=== PATIENT | female | born 1950 | race Caucasian/White ===

== ENCOUNTER 2021-09-25 17:13 | Inpatient (IN) | payer MEDICARE, OTHER ==
[~2021-09-25] VITALS: Ht 162.6 cm; Wt 167.5 kg
--- NOTE | 2021-09-25 17:15 | NUR ---
Patient BIB rescue, alert and oriented x4 with complaints of SOB and cough, bilateral lower ext edema noted. Denies nausea/vomiting, chest pain. History of COPD.
--- NOTE | 2021-09-25 17:16 | NUR ---
MD at bedside, medical screening exam in process.
[2021-09-25] MEDS ORDERED: ALBUTEROL SULFATE 2.5 MG/3 ML NEBU ONE ×2 (17:24→17:25)
[2021-09-25] MEDS ORDERED: IPRATROPIUM BROMIDE 0.5 MG/2.5 ML NEBU ONE (17:24)
[2021-09-25] MEDS ORDERED: IPRATROPIUM BROMIDE 0.5 MG/2.5 ML NEBU NEB ONE (17:30)
[2021-09-25] MEDS ORDERED: ALBUTEROL SULFATE 2.5 MG/3 ML NEBU NEB ONE (17:30)
--- NOTE | 2021-09-25 17:40 | NUR ---
Covid specimen sent to lab.
[2021-09-25 17:53] LABS: HEMATOCRIT 35.4 % (31.2-41.9); MEAN CORPUSCULAR HEMOGLOBIN 27.6 uug (24.7-32.8); MEAN CORPUSCULAR VOLUME 84.4 fL (75.5-95.3); PLATELET COUNT (AUTO) 187 K/uL (179-408)
[2021-09-25 17:56] LABS: CARBON DIOXIDE 30 mmol/L (21-32); CHLORIDE 103 mmol/L (98-107); CREATININE 1.3 mg/dL (0.6-1.3); GLUCOSE 188 mg/dL (74-106); POTASSIUM 4.4 mmol/L (3.5-5.1); UREA NITROGEN, BLOOD 28 mg/dL (7-18)
[2021-09-25 18:09] LABS: ALANINE AMINOTRANSFERASE 37 U/L (14-59); ALKALINE PHOSPHATASE 172 U/L (50-136); ASPARTATE AMINOTRANSFERASE 23 U/L (15-37); BILIRUBIN,TOTAL 0.5 mg/dL (0.2-1.0)
[2021-09-25] MEDS ORDERED: DOCU-141 PO (18:15)
[2021-09-25] MEDS ORDERED: BLOO-668 IN (18:15)
[2021-09-25] MEDS ORDERED: HYDR28.469 TP (18:15)
[2021-09-25] MEDS ORDERED: FURO-151 PO (18:15)
[2021-09-25] MEDS ORDERED: QUET50TA PO (18:15)
[2021-09-25] MEDS ORDERED: CHOL500050 PO (18:15)
[2021-09-25] MEDS ORDERED: LORA10TA7 PO (18:15)
[2021-09-25] MEDS ORDERED: ASPI81TA31 PO (18:15)
[2021-09-25] MEDS ORDERED: INSU200I SQ ×3 (18:15)
[2021-09-25] MEDS ORDERED: LOPE2CAP40 PO (18:15)
[2021-09-25] MEDS ORDERED: LEVO175T7 PO (18:15)
[2021-09-25] MEDS ORDERED: APIX5TAB PO (18:15)
[2021-09-25] MEDS ORDERED: CARB15DR3 OP (18:15)
[2021-09-25] MEDS ORDERED: PANT40TA2 PO (18:15)
[2021-09-25] MEDS ORDERED: ATOR40TA PO (18:15)
[2021-09-25] MEDS ORDERED: NYST15PO3 TP (18:15)
[2021-09-25] MEDS ORDERED: BUDE10.2 INH (18:15)
[2021-09-25] MEDS ORDERED: ASCO500C18 PO (18:15)
[2021-09-25] MEDS ORDERED: GLIP10TA11 PO (18:15)
[2021-09-25] MEDS ORDERED: HYDR10SY12 PO (18:15)
[2021-09-25] MEDS ORDERED: GABA300C PO (18:15)
[2021-09-25] MEDS ORDERED: DIPH25TA23 PO (18:15)
[2021-09-25] MEDS ORDERED: LISI40TA13 PO (18:15)
[2021-09-25] MEDS ORDERED: CARV25TA PO (18:15)
[2021-09-25] MEDS ORDERED: ALLO100T56 PO (18:15)
[2021-09-25] MEDS ORDERED: BUPR300T52 PO (18:15)
[2021-09-25] MEDS ORDERED: ALBU6.7H9 INH (18:15)
[2021-09-25] MEDS ORDERED: ACET-73 PO (18:15)
[2021-09-25] MEDS ORDERED: ESCI20TA PO (18:15)
[2021-09-25] MEDS ORDERED: TRAM50TA2 PO (18:15)
[2021-09-25] MEDS ORDERED: INSU100I26 SQ ×2 (18:15)
[2021-09-25] MEDS ORDERED: CELE200C PO (18:15)
[2021-09-25] MEDS ORDERED: AMIO200T5 PO (18:15)
[2021-09-25] MEDS ORDERED: FUROSEMIDE 40 MG/4 ML VIAL IV ONE (18:30)
[2021-09-25] MEDS ORDERED: FUROSEMIDE 40 MG/4 ML VIAL ONE (18:48)
--- NOTE | 2021-09-25 19:15 | NUR ---
Dr. Valdez at bedside speaking with the pt.
--- NOTE | 2021-09-25 19:25 | NUR ---
called Sunil Hernandez at [facility] at [phone] spoke with the Eunice the charge nurse, she is speaking with Dr. Valdez.
--- NOTE | 2021-09-25 20:31 | NUR ---
ultrasound at bedside.
--- NOTE | 2021-09-25 21:04 | NUR ---
call to Emma at [facility] [phone] they state a doctor will call in about 15 to 20 minutes to speak to the ER MD here.
--- NOTE | 2021-09-25 21:37 | NUR ---
pt aware that per her insurance she will be transferred to [facility]. She states she is comfortable in the [place] denies sob saturation is 96 on 2 liters nc.
--- NOTE | 2021-09-25 23:01 | NUR ---
per ER clerk Mendoza [facility] needs more paperwork if the pt is stable. This was faxed to them we are still waiting to hear back from them. This was relayed to the pt, the patient says "ok" she would like to go soon she says to the other hospital that she will be admitted to.
--- NOTE | 2021-09-25 23:27 | NUR ---
provided orange juice per pt request.
[2021-09-26] MEDS ORDERED: ACETAMINOPHEN ES 500 MG TABLET ONE ×2 (00:09→00:13)
[2021-09-26] MEDS ORDERED: ACETAMINOPHEN ES 500 MG TABLET PO ONE (00:15)
--- NOTE | 2021-09-26 00:23 | NUR ---
called Rachel at [facility] regarding transport to [facility]. They state they are still trying to locate an ambulance secondary to the need of a Bariatric ambulance as pt weighs 385 lbs.
--- NOTE | 2021-09-26 01:37 | NUR ---
per Bobbi Wellington from [facility] gave authorization for observation.
--- NOTE | 2021-09-26 02:04 | NUR ---
pt transferred to a hospital bed, with the assist three nurses and RT. pt is being placed on cpap by RT. Call to [facility] panel doctor for admission.
[2021-09-26] MEDS ORDERED: NYSTATIN POWDER 15 GM BOTTLE TP PRN (02:15)
[2021-09-26] MEDS ORDERED: ALBUTEROL SULFATE 8 GM HFA.AER.AD INH PRN (02:15)
--- NOTE | 2021-09-26 02:17 | NUR ---
cpap settings, 13. 28 percent fio2 for jacklyn.
[2021-09-26] MEDS ORDERED: DEXTROSE 50% 50 ML DISP.SYRIN IV PRN (02:30)
--- NOTE | 2021-09-26 03:05 | NUR ---
pt c/o pain, call to Dr. Rendon.
--- NOTE | 2021-09-26 03:09 | NUR ---
Dr. Michael called back gave one time order for Neurontin 300mg po.
[2021-09-26] MEDS ORDERED: GABAPENTIN 300 MG CAPSULE ONE (03:12)
[2021-09-26] MEDS ORDERED: hydrALAZINE HCL 20 MG/1 ML VIAL IV PRN (03:15)
[2021-09-26] MEDS ORDERED: GABAPENTIN 300 MG CAPSULE PO ONE (03:15)
[2021-09-26] MEDS ORDERED: ONDANSETRON 4 MG/2 ML VIAL IV PRN (03:15)
--- NOTE | 2021-09-26 04:06 | NUR ---
report given to Jessica RN, pt to go to room 314.
--- NOTE | 2021-09-26 04:56 | NUR ---
pt transported to room 314 via bed with all belongings. MITUL Lopez at bedside to receive the pt.
[2021-09-26 05:00] VITALS: BP 136/58
--- NOTE | 2021-09-26 05:00 | NUR ---
patient admitted to telemetry. AAO x4, is a good historian. Patient lives in [place], uses motorized wheel chair. On CPAP at this time. still noted with SOB at rest with occasional dry cough. Admitted for CHF. 2 Pitting edema to BLE. Patient is obese. c/O pain to lower back and knees. Skin assessment completed and pictures attached to chart. HOB elevated, aspiration precautions followed. Safety measures initiated. Call light within reach.
--- NOTE | 2021-09-26 05:09 | NUR ---
PATIENT PLACED ON 2 L NASAL CANNULA FOR TRANSPORT. PER MD ORDER, RETURNED TO CPAP 13, 28% FiO2. LARGE MASK, MEPILEX IN PLACE FOR SKIN INTEGRITY. ALARMS CHECKED AND ARE ON/AUDIBLE. MACHINE CONNECTED TO RED OUTLET. NO COMPLICATIONS. CPAP TOLERATED WELL. WILL CONTINUE TO MONITOR.
[2021-09-26] MEDS ORDERED: ALBUTEROL SULFATE 2.5 MG/3 ML NEBU NEB PRN (05:45)
[2021-09-26] MEDS: MORPHINE SULFATE 2 MG/1 ML DISP.SYRIN IV PRN ×3 (06:10→20:08)
[2021-09-26] MEDS: LEVOTHYROXINE SODIUM 175 MCG TABLET PO SCH (06:11)
[2021-09-26] MEDS: BLOOD SUGAR DIAGNOSTIC 1 EACH STRIP VI SCH ×4 (06:12→21:17)
[2021-09-26 08:00] VITALS: BP 112/36
[2021-09-26] MEDS ORDERED: IPRATROPIUM BROMIDE 0.5 MG/2.5 ML NEBU NEB PRN (08:30)
[2021-09-26] MEDS ORDERED: AMIODARONE HCL 200 MG TABLET PO SCH (09:00)
[2021-09-26] MEDS ORDERED: Medication Not On Formulary EA (Escitalopram Oxalate (Lexapro) 1 TAB) PO SCH (09:00)
[2021-09-26] MEDS ORDERED: POLYVINYL ALCOHOL OPHT DROPS 15 ML BOTTLE OP SCH (09:00)
[2021-09-26] MEDS: CARVEDILOL 25 MG TABLET PO SCH ×2 (10:08→18:45)
[2021-09-26] MEDS: ALLOPURINOL 100 MG TABLET PO SCH (10:08)
[2021-09-26] MEDS: LISINOPRIL 20 MG TABLET PO SCH (10:09)
[2021-09-26] MEDS: LORATADINE 10 MG TABLET PO SCH (10:09)
[2021-09-26] MEDS: ASPIRIN 81 MG TAB.CHEW PO SCH (10:09)
[2021-09-26] MEDS: ASCORBIC ACID 500 MG TABLET PO SCH (10:09)
[2021-09-26] MEDS: CHOLECALCIFEROL 1,000 UNIT TABLET PO SCH (10:10)
[2021-09-26] MEDS: APIXABAN 5 MG TABLET PO SCH ×2 (10:11→21:15)
[2021-09-26] MEDS: FUROSEMIDE 40 MG/4 ML VIAL IV SCH ×2 (10:11→17:49)
[2021-09-26] MEDS: AMIODARONE HCL 200 MG TABLET PO SCH (10:13)
[2021-09-26] MEDS: PANTOPRAZOLE SODIUM 40 MG TABLET.DR PO SCH (10:21)
[2021-09-26] MEDS: ESCITALOPRAM OXALATE 10 MG TABLET PO SCH (10:21)
[2021-09-26] MEDS: buPROPion XL 150 MG TAB.SR.24H PO SCH (10:21)
[2021-09-26] MEDS: ALBUTEROL SULFATE 2.5 MG/3 ML NEBU NEB SCH ×3 (11:52→21:43)
[2021-09-26] MEDS: IPRATROPIUM BROMIDE 0.5 MG/2.5 ML NEBU NEB SCH ×3 (11:52→21:43)
[2021-09-26 12:00] VITALS: BP 124/45
--- NOTE | 2021-09-26 12:07 | NUR ---
WOUND CARE C ONSULT: PT RECEIVING RESPIRATORY TREATMENT AT THIS TIME. PRESENTS WITH REDNESS TO RT SIDE OF ABDOMEN, PRESENT ON ADMISSION. DEFER TO PMD. RECOMMENDATIONS MADE FOR SKIN PROTECTION. DISCUSSED WITH NURSING STAFF. BARIATRIC BED ORDERED BY NURSING STAFF. WILL SEE PRArthur CANCINO IN AGREEMENT WITH PLAN OF CARE.
[2021-09-26] MEDS: INSULIN REGULAR, HUMAN 300 UNIT/3 ML VIAL SQ PRN ×2 (12:33→18:05)
[2021-09-26] MEDS: POLYVINYL ALCOHOL OPHT DROPS 15 ML BOTTLE EACHEYE SCH ×3 (12:35→21:16)
[2021-09-26 16:00] VITALS: BP 138/48
[2021-09-26] MEDS: NYSTATIN POWDER 15 GM BOTTLE TP SCH (17:50)
[2021-09-26 20:56] VITALS: BP 116/49
[2021-09-26] MEDS: ATORVASTATIN 40 MG TABLET PO SCH (21:08)
[2021-09-26] MEDS: QUETIAPINE FUMARATE 25 MG TABLET PO SCH (21:09)
[2021-09-26] MEDS: GABAPENTIN 300 MG CAPSULE PO SCH (21:09)
[2021-09-26] MEDS: INSULIN GLARGINE,HUM 300 UNITS/3 ML CARTRIDGE SQ SCH (21:14)
[2021-09-26] MEDS: INSULIN REGULAR, HUMAN 300 UNITS/3 ML VIAL SQ PRN (21:19)
--- NOTE | 2021-09-27 00:13 | NUR ---
PATIENT PLACED ON CPAP MACHINE WITH FULL LARGE MASK, @ 22:00, CPAP 13, FIO2 @ 28%, PT FALLS ASLEEP EARLY, VERY COOPERATIVE, ,MONITOR Q2 HOURS, DOING WELL, WITH NO RESP. DISTRESS.Florencio KAUFFMAN RCP Addendum: 09/27/21 at 0015 by JARAD KAUFFMAN RT Amended: Links added.
[2021-09-27 00:21] VITALS: BP 155/59
[2021-09-27 04:35] VITALS: BP 124/59
[2021-09-27 06:10] LABS: HEMATOCRIT 33.2 % (31.2-41.9); MEAN CORPUSCULAR HEMOGLOBIN 27.5 uug (24.7-32.8); MEAN CORPUSCULAR VOLUME 84.9 fL (75.5-95.3); PLATELET COUNT (AUTO) 165 K/uL (179-408)
[2021-09-27] MEDS: LEVOTHYROXINE SODIUM 175 MCG TABLET PO SCH (06:25)
[2021-09-27] MEDS: BLOOD SUGAR DIAGNOSTIC 1 EACH STRIP VI SCH ×4 (06:25→20:42)
[2021-09-27 06:26] LABS: CARBON DIOXIDE 33 mmol/L (21-32); CHLORIDE 101 mmol/L (98-107); CREATININE 1.5 mg/dL (0.6-1.3); GLUCOSE 193 mg/dL (74-106); POTASSIUM 4.2 mmol/L (3.5-5.1); UREA NITROGEN, BLOOD 30 mg/dL (7-18)
[2021-09-27 06:27] LABS: ALANINE AMINOTRANSFERASE 24 U/L (14-59); ALKALINE PHOSPHATASE 140 U/L (50-136); ASPARTATE AMINOTRANSFERASE 15 U/L (15-37); BILIRUBIN,TOTAL 0.9 mg/dL (0.2-1.0); MAGNESIUM 1.3 mg/dL (1.8-2.4); PHOSPHOROUS 4.7 mg/dL (2.5-4.9); TOTAL PROTEIN, SERUM 6.4 g/dL (6.4-8.2)
--- NOTE | 2021-09-27 06:32 | NUR ---
Pt rested well in between care; no acute distress; tolerated CPAP; pt placed on bariatric bed; continue to monitor; continue plan of care; accucheck this AM is 171
[2021-09-27 06:37] LABS: THYROID STIMULATING HORMONE 0.525 mIU/mL (0.358-3.740)
[2021-09-27 06:48] LABS: LYMPHOCYTES % (MANUAL) 27 % (20-40); MONOCYTES % (MANUAL) 16 % (2-10); NEUTROPHILS % (MANUAL) 57 % (42-75)
[2021-09-27] MEDS: ALBUTEROL SULFATE 2.5 MG/3 ML NEBU NEB SCH ×4 (07:17→19:02)
[2021-09-27] MEDS: IPRATROPIUM BROMIDE 0.5 MG/2.5 ML NEBU NEB SCH ×4 (07:17→19:02)
[2021-09-27] MEDS: INSULIN REGULAR, HUMAN 300 UNIT/3 ML VIAL SQ PRN ×3 (07:41→16:39)
--- NOTE | 2021-09-27 07:50 | NUR ---
PATIENT IS RESTED IN BED, NO DISTRESS NOTED. GOT HER MORNING DOSE OF INSULIN 3 UNITS PER SLIDING SCARE. CONTINUE TO MONITOR
[2021-09-27] MEDS: CARVEDILOL 25 MG TABLET PO SCH ×2 (08:00→17:49)
--- NOTE | 2021-09-27 08:00 | NUR ---
HOSPITALIST MADE AWARE OF LOW MAGNESIUM 1.3 AND MADE AN ORDER TO GIVE 2 GMS IV
[2021-09-27] MEDS: ASPIRIN 81 MG TAB.CHEW PO SCH (08:11)
[2021-09-27] MEDS: APIXABAN 5 MG TABLET PO SCH ×2 (08:13→20:37)
[2021-09-27] MEDS: LORATADINE 10 MG TABLET PO SCH (08:14)
[2021-09-27] MEDS: ESCITALOPRAM OXALATE 10 MG TABLET PO SCH (08:14)
[2021-09-27] MEDS: PANTOPRAZOLE SODIUM 40 MG TABLET.DR PO SCH (08:14)
[2021-09-27] MEDS: CHOLECALCIFEROL 1,000 UNIT TABLET PO SCH (08:15)
[2021-09-27] MEDS: ALLOPURINOL 100 MG TABLET PO SCH (08:18)
[2021-09-27] MEDS: buPROPion XL 150 MG TAB.SR.24H PO SCH (08:19)
[2021-09-27] MEDS: ASCORBIC ACID 500 MG TABLET PO SCH (08:19)
[2021-09-27] MEDS: FUROSEMIDE 40 MG/4 ML VIAL IV SCH (08:20)
[2021-09-27] MEDS: AMIODARONE HCL 200 MG TABLET PO SCH (08:21)
[2021-09-27] MEDS: LISINOPRIL 20 MG TABLET PO SCH (08:23)
[2021-09-27] MEDS: NYSTATIN POWDER 15 GM BOTTLE TP SCH ×2 (08:24→17:50)
[2021-09-27] MEDS: POLYVINYL ALCOHOL OPHT DROPS 15 ML BOTTLE EACHEYE SCH ×4 (08:24→20:44)
--- NOTE | 2021-09-27 08:25 | NUR ---
PER HOSPITALIST, HOLD AMIODARONE, COREG AND LISINOPRIL DUE TO LOW BP AND CONTINUE WITH LASIX ORDERED.
[2021-09-27] MEDS: MAGNESIUM SULFATE/D5W 100 ML IV SCH ×2 (09:11→10:30)
[2021-09-27 10:39] LABS: ABG BASE EXCESS 6.3 mmol/L; ABG HCO3 31.4 mmol/L; ABG PCO2 47.8 mmHg (35.0-45.0); ABG PH 7.436 (7.350-7.450); ABG SITE RIGHT RADIAL; ABG TOTAL HEMOGLOBIN 11.6 G/dL (12.0-16.0); COHb 1.2 % (0.5-1.5); MetHb 0.3 % (0.0-1.5); O2Hb 91.7 % (94.0-97.0); VENT MODE Nasal Cannula
[2021-09-27 11:35] VITALS: BP 128/50
--- NOTE | 2021-09-27 13:05 | NUR ---
PATIENT ASKED TO BE PUT ON CPAP BECAUSE SHE SAID HER NOSE WAS STUFFED. PATIENT IS RESTING IN BED, NO DISTRESS NOTED
[2021-09-27] MEDS: ACETAMINOPHEN 325 MG TABLET PO PRN (14:45)
--- NOTE | 2021-09-27 14:51 | NUR ---
PATIENT ASKED FOR TYLENOL FOR HER HEADACHE. PATIENT WAS GIVEN TYLENOL. WILL CONTINUE TO MONITOR.
[2021-09-27 16:45] VITALS: BP 136/54
[2021-09-27] MEDS: FUROSEMIDE 20 MG/2 ML VIAL IV SCH (17:29)
--- NOTE | 2021-09-27 17:30 | NUR ---
patient was not given Coreg due to low BP (96/54) and pulse (57).
[2021-09-27] MEDS: ATORVASTATIN 40 MG TABLET PO SCH (20:36)
[2021-09-27] MEDS: GABAPENTIN 300 MG CAPSULE PO SCH (20:36)
[2021-09-27] MEDS: QUETIAPINE FUMARATE 25 MG TABLET PO SCH (20:37)
[2021-09-27] MEDS: INSULIN GLARGINE,HUM 300 UNITS/3 ML CARTRIDGE SQ SCH (20:41)
[2021-09-27] MEDS: INSULIN REGULAR, HUMAN 300 UNITS/3 ML VIAL SQ PRN (20:43)
[2021-09-27 20:50] VITALS: BP 151/54
[2021-09-28 00:28] VITALS: BP 109/57
[2021-09-28 04:32] VITALS: BP 131/53
[2021-09-28] MEDS: LEVOTHYROXINE SODIUM 175 MCG TABLET PO SCH (05:56)
--- NOTE | 2021-09-28 06:00 | NUR ---
Patient rested well in between care; no acute distress; tolerated her CPAP; needs attended; safety maintained.
[2021-09-28] MEDS: BLOOD SUGAR DIAGNOSTIC 1 EACH STRIP VI SCH ×4 (06:59→21:20)
[2021-09-28] MEDS: IPRATROPIUM BROMIDE 0.5 MG/2.5 ML NEBU NEB SCH ×4 (07:28→19:12)
[2021-09-28] MEDS: ALBUTEROL SULFATE 2.5 MG/3 ML NEBU NEB SCH ×4 (07:28→19:12)
[2021-09-28] MEDS: INSULIN REGULAR, HUMAN 300 UNIT/3 ML VIAL SQ PRN ×4 (07:51→21:18)
[2021-09-28] MEDS: ASPIRIN 81 MG TAB.CHEW PO SCH (08:26)
[2021-09-28] MEDS: ALLOPURINOL 100 MG TABLET PO SCH (08:26)
[2021-09-28] MEDS: AMIODARONE HCL 200 MG TABLET PO SCH (08:26)
[2021-09-28] MEDS: ASCORBIC ACID 500 MG TABLET PO SCH (08:26)
[2021-09-28] MEDS: buPROPion XL 150 MG TAB.SR.24H PO SCH (08:26)
[2021-09-28] MEDS: CARVEDILOL 25 MG TABLET PO SCH ×2 (08:27→17:14)
[2021-09-28] MEDS: POLYVINYL ALCOHOL OPHT DROPS 15 ML BOTTLE EACHEYE SCH ×4 (08:27→21:21)
[2021-09-28] MEDS: APIXABAN 5 MG TABLET PO SCH ×2 (08:36→21:19)
[2021-09-28] MEDS: CHOLECALCIFEROL 1,000 UNIT TABLET PO SCH (08:37)
[2021-09-28] MEDS: FUROSEMIDE 20 MG/2 ML VIAL IV SCH ×2 (08:38→17:01)
[2021-09-28] MEDS: ESCITALOPRAM OXALATE 10 MG TABLET PO SCH (08:38)
[2021-09-28] MEDS: PANTOPRAZOLE SODIUM 40 MG TABLET.DR PO SCH (08:38)
[2021-09-28] MEDS: LISINOPRIL 20 MG TABLET PO SCH (08:38)
[2021-09-28] MEDS: LORATADINE 10 MG TABLET PO SCH (08:38)
[2021-09-28] MEDS: NYSTATIN POWDER 15 GM BOTTLE TP SCH ×2 (08:39→17:01)
[2021-09-28 09:40] LABS: CREATININE 1.3 mg/dL (0.6-1.3); POTASSIUM 4.1 mmol/L (3.5-5.1)
[2021-09-28 12:00] VITALS: BP 152/62
--- NOTE | 2021-09-28 12:00 | NUR ---
NO ACUTE CHANGE FROM MORNING ASSESSMENT, TOLERATING O2 AT 1L NC SATURATING 95% SR ON MONITOR
[2021-09-28 16:09] VITALS: BP 142/42
--- NOTE | 2021-09-28 17:36 | NUR ---
remains sr on monitor, no ss of acute pain or distress, saturating 96-97% on 2l nc
[2021-09-28 20:12] VITALS: BP 131/66
[2021-09-28] MEDS: INSULIN GLARGINE,HUM 300 UNITS/3 ML CARTRIDGE SQ SCH (21:17)
[2021-09-28] MEDS: GABAPENTIN 300 MG CAPSULE PO SCH (21:19)
[2021-09-28] MEDS: ATORVASTATIN 40 MG TABLET PO SCH (21:19)
[2021-09-28] MEDS: QUETIAPINE FUMARATE 25 MG TABLET PO SCH (21:20)
[2021-09-29 00:37] VITALS: BP 113/46
[2021-09-29] MEDS: MORPHINE SULFATE 2 MG/1 ML DISP.SYRIN IV PRN (03:04)
--- NOTE | 2021-09-29 03:49 | NUR ---
Pt pulled out her IV removing her CPAP, and Nasal cannula when off cpap; pt pulling out Tele Leads multiple times; and now pt trying to opull out her hermosillo catheter; referred to [employer] Installer Helper MD Dr Michael and ordered wrist restraints. wrist restraints applies; iv resited; safety maintained; continue to monitor.
[2021-09-29 04:12] VITALS: BP 111/69
[2021-09-29 06:49] LABS: HEMATOCRIT 35.9 % (31.2-41.9); MEAN CORPUSCULAR HEMOGLOBIN 27.7 uug (24.7-32.8); MEAN CORPUSCULAR VOLUME 85.6 fL (75.5-95.3); PLATELET COUNT (AUTO) 182 K/uL (179-408)
[2021-09-29 07:07] LABS: CARBON DIOXIDE 36 mmol/L (21-32); CHLORIDE 98 mmol/L (98-107); CREATININE 1.7 mg/dL (0.6-1.3); GLUCOSE 188 mg/dL (74-106); POTASSIUM 3.8 mmol/L (3.5-5.1); UREA NITROGEN, BLOOD 36 mg/dL (7-18)
[2021-09-29 07:11] LABS: PHOSPHOROUS 4.3 mg/dL (2.5-4.9)
--- NOTE | 2021-09-29 07:31 | NUR ---
RECEIVED PATIENT IN BED ON CPAP ORDERED WITH NO S/S OF SHORTNESS OF BREATH AT THIS TIME SHE IS AWAKE AND SEEMS AWARE WITH DENIS WRIST RESTRAINTS TO PREVENT FROM PULLING OUT TUBES CHECKED AND RELEASED FOR CIRCULATION.MAX ASSIST FOR ADLS REPOSITIONED FOR COMFORTS NOT IN DISTRESS AT THIS TIME.
[2021-09-29] MEDS: IPRATROPIUM BROMIDE 0.5 MG/2.5 ML NEBU NEB SCH ×4 (07:39→19:41)
[2021-09-29] MEDS: ALBUTEROL SULFATE 2.5 MG/3 ML NEBU NEB SCH ×4 (07:40→19:41)
[2021-09-29] MEDS: BLOOD SUGAR DIAGNOSTIC 1 EACH STRIP VI SCH ×4 (07:42→20:16)
[2021-09-29] MEDS: LEVOTHYROXINE SODIUM 175 MCG TABLET PO SCH (07:53)
[2021-09-29] MEDS: INSULIN REGULAR, HUMAN 300 UNIT/3 ML VIAL SQ PRN ×3 (07:54→17:05)
--- NOTE | 2021-09-29 08:25 | NUR ---
REPORTED BY THE MERCERIZER MACHINE OPERATOR PATIENTS RHYTHM IS AFIB AT 105 STATED THAT SHE HAS ALWAYS BEEN SINUS RHYTHM DR MCMANUS NOTIFIED WITH ORDER FOR STAT EKG PATIENT IS QUIET IN BED DENIES DISCOMFORTS HAS O2 AT 1 LITER PER MINUTE WITH NO SHORTNESS OF BREATH AT THIS TIME
[2021-09-29] MEDS: CHOLECALCIFEROL 1,000 UNIT TABLET PO SCH (08:39)
[2021-09-29] MEDS: FUROSEMIDE 20 MG/2 ML VIAL IV SCH (08:39)
[2021-09-29] MEDS: buPROPion XL 150 MG TAB.SR.24H PO SCH (08:40)
[2021-09-29] MEDS: ASCORBIC ACID 500 MG TABLET PO SCH (08:40)
[2021-09-29] MEDS: ASPIRIN 81 MG TAB.CHEW PO SCH (08:40)
[2021-09-29] MEDS: ALLOPURINOL 100 MG TABLET PO SCH (08:40)
[2021-09-29] MEDS: ESCITALOPRAM OXALATE 10 MG TABLET PO SCH (08:40)
[2021-09-29] MEDS: LORATADINE 10 MG TABLET PO SCH (08:41)
[2021-09-29] MEDS: PANTOPRAZOLE SODIUM 40 MG TABLET.DR PO SCH (08:41)
[2021-09-29] MEDS: APIXABAN 5 MG TABLET PO SCH ×2 (08:42→20:15)
--- NOTE | 2021-09-29 08:45 | NUR ---
EKG COMPLETED ORDERED AWAITING FOR RESULTS.
[2021-09-29] MEDS: AMIODARONE HCL 200 MG TABLET PO SCH ×2 (08:46→17:00)
[2021-09-29] MEDS: CARVEDILOL 25 MG TABLET PO SCH ×2 (08:47→17:03)
[2021-09-29] MEDS: LISINOPRIL 20 MG TABLET PO SCH (08:47)
[2021-09-29] MEDS: NYSTATIN POWDER 15 GM BOTTLE TP SCH ×2 (08:48→16:54)
[2021-09-29] MEDS: POLYVINYL ALCOHOL OPHT DROPS 15 ML BOTTLE EACHEYE SCH ×4 (08:49→20:15)
--- NOTE | 2021-09-29 08:50 | NUR ---
RECEIVED A CALL FROM THE LAB MAG LEVEL IS 1.2 NOTIFIED URIEL WITH NO NEW ORDERS AT THIS TIME.
[2021-09-29 08:52] LABS: MAGNESIUM 1.2 mg/dL (1.8-2.4)
--- NOTE | 2021-09-29 09:00 | NUR ---
DR SONI HERE AND SEEN THE EKG RESULTS WITH NO NEW ORDERS AT THIS TIME.
--- NOTE | 2021-09-29 09:42 | NUR ---
ORDERS NOTED FOR 2 GRAMS OF MAG AND NOTED.
[2021-09-29] MEDS ORDERED: POTASSIUM CHLORIDE 20 MEQ POWDER PACKET PO ONE (10:06)
[2021-09-29] MEDS: MAGNESIUM SULFATE/D5W 100 ML IV SCH ×2 (10:26→11:38)
[2021-09-29] MEDS ORDERED: AMIODARONE HCL IV 150 MG in IV DEXTROSE 5% 100 ML IV ONE (10:30)
--- NOTE | 2021-09-29 10:56 | NUR ---
AMIODARONE DRIP STARTED AND CLOSELY MONITORED, PER SALVAGE MACHINE OPERATOR CONTINUE TELE FOR NOW AND OBSERVE
[2021-09-29] MEDS: ACETAzolamide SODIUM 500 MG VIAL IV SCH (11:15)
[2021-09-29 12:05] VITALS: BP 107/71
--- NOTE | 2021-09-29 12:37 | NUR ---
AWAKE ALERT STILL FORGETFUL AND DISORIENTED BUT REDIRECTABLE IS AT THE BEDSIDE AND ASSISTING HER WITH HER LUNCH WILL CONTINUE TO OBSERVE.
[2021-09-29 16:32] VITALS: BP 114/57
[2021-09-29] MEDS: GLUCERNA SHAKE VANILLA 237 ML CAN PO SCH (16:54)
--- NOTE | 2021-09-29 18:00 | NUR ---
CONTINUE TO BE DISORIENTED OFF AND ON EASILY REDIRECTABLE DENIS WRIST RESTRAINTS IS OFF AND THEN ON TO PREVENT FROM PULLING OUT TUBES MADE COMFORTABLE WILL CONTINUE TO OBSERVE.
--- NOTE | 2021-09-29 19:30 | NUR ---
Received pt awake, alert and orientedx3. Pt on 1l nasal cannula. Pt on sinus rhythm. Pt in no acute distress. Iv intact. Safety and comfort provided. Will continue to monitor.
[2021-09-29] MEDS: QUETIAPINE FUMARATE 25 MG TABLET PO SCH (20:14)
[2021-09-29] MEDS: ATORVASTATIN 40 MG TABLET PO SCH (20:14)
[2021-09-29] MEDS: GABAPENTIN 300 MG CAPSULE PO SCH (20:14)
[2021-09-29 20:15] VITALS: BP 119/50
[2021-09-29] MEDS: INSULIN GLARGINE,HUM 300 UNITS/3 ML CARTRIDGE SQ SCH (20:16)
[2021-09-29] MEDS: INSULIN REGULAR, HUMAN 300 UNITS/3 ML VIAL SQ PRN (20:18)
[2021-09-29 20:37] LABS: BAND % (MANUAL) 2 % (0-10); EOSINOPHILS % (MANUAL) 2 % (0-8); LYMPHOCYTES % (MANUAL) 24 % (20-40); MONOCYTES % (MANUAL) 12 % (2-10); NEUTROPHILS % (MANUAL) 60 % (42-75)
[2021-09-30 00:09] VITALS: BP 121/55
[2021-09-30 04:15] VITALS: BP 97/57
[2021-09-30] MEDS: LEVOTHYROXINE SODIUM 175 MCG TABLET PO SCH (06:18)
--- NOTE | 2021-09-30 06:33 | NUR ---
Pt in no acute distress. Prescribed medication given and pt tolerated it well. Pt on controlled afib .Pt Iv intact. Pt hermosillo intact and draining tea colored with sediment urine. Pt turned and repositioned. Pt on1l nasal cannula. Pt vital signs within normal limit. Safety and comfort provided. All needs are met. Will endorse to incoming nurse for continuity of care.
[2021-09-30] MEDS: BLOOD SUGAR DIAGNOSTIC 1 EACH STRIP VI SCH ×4 (06:36→21:28)
[2021-09-30] MEDS: CARVEDILOL 25 MG TABLET PO SCH ×2 (08:00→18:00)
[2021-09-30] MEDS: IPRATROPIUM BROMIDE 0.5 MG/2.5 ML NEBU NEB SCH ×4 (08:25→19:41)
[2021-09-30] MEDS: ALBUTEROL SULFATE 2.5 MG/3 ML NEBU NEB SCH ×4 (08:25→19:40)
[2021-09-30 08:43] LABS: HEMATOCRIT 35.5 % (31.2-41.9); MEAN CORPUSCULAR HEMOGLOBIN 27.4 uug (24.7-32.8); MEAN CORPUSCULAR VOLUME 85.5 fL (75.5-95.3); PLATELET COUNT (AUTO) 195 K/uL (179-408)
[2021-09-30 08:49] LABS: CARBON DIOXIDE 32 mmol/L (21-32); CHLORIDE 100 mmol/L (98-107); CREATININE 2.5 mg/dL (0.6-1.3); GLUCOSE 245 mg/dL (74-106); POTASSIUM 4.5 mmol/L (3.5-5.1); UREA NITROGEN, BLOOD 56 mg/dL (7-18)
[2021-09-30 08:51] LABS: PHOSPHOROUS 5.8 mg/dL (2.5-4.9)
[2021-09-30] MEDS: LISINOPRIL 20 MG TABLET PO SCH (09:00)
[2021-09-30] MEDS ORDERED: FUROSEMIDE 40 MG TABLET PO SCH (09:00)
[2021-09-30] MEDS: ESCITALOPRAM OXALATE 10 MG TABLET PO SCH (09:01)
[2021-09-30] MEDS: ASPIRIN 81 MG TAB.CHEW PO SCH (09:01)
[2021-09-30] MEDS: buPROPion XL 150 MG TAB.SR.24H PO SCH (09:02)
[2021-09-30] MEDS: ASCORBIC ACID 500 MG TABLET PO SCH (09:02)
[2021-09-30] MEDS: LORATADINE 10 MG TABLET PO SCH (09:02)
[2021-09-30] MEDS: ALLOPURINOL 100 MG TABLET PO SCH (09:02)
[2021-09-30] MEDS: PANTOPRAZOLE SODIUM 40 MG TABLET.DR PO SCH (09:02)
[2021-09-30] MEDS: AMIODARONE HCL 200 MG TABLET PO SCH ×2 (09:02→16:51)
[2021-09-30] MEDS: POLYVINYL ALCOHOL OPHT DROPS 15 ML BOTTLE EACHEYE SCH ×4 (09:03→21:15)
[2021-09-30] MEDS: CHOLECALCIFEROL 1,000 UNIT TABLET PO SCH (09:03)
[2021-09-30] MEDS: ACETAzolamide SODIUM 500 MG VIAL IV SCH (09:03)
[2021-09-30] MEDS: APIXABAN 5 MG TABLET PO SCH ×2 (09:06→21:19)
[2021-09-30] MEDS: INSULIN REGULAR, HUMAN 300 UNIT/3 ML VIAL SQ PRN ×4 (09:07→21:28)
[2021-09-30] MEDS: NYSTATIN POWDER 15 GM BOTTLE TP SCH ×2 (09:27→16:51)
[2021-09-30] MEDS: GLUCERNA SHAKE VANILLA 237 ML CAN PO SCH ×2 (09:27→16:52)
--- NOTE | 2021-09-30 10:46 | NUR ---
patient is currently laying in bed in no acute distress. patient is pleasant, able to make needs known. no behavioral issues noted, no restraints, or bed side sitter noted. patient had breakfast without difficulty. at this time v/s wnl, 0 c/o pain discomfort
[2021-09-30 12:08] VITALS: BP 95/45
[2021-09-30 16:00] VITALS: BP 91/48
[2021-09-30 20:00] VITALS: BP 128/47
[2021-09-30] MEDS: QUETIAPINE FUMARATE 25 MG TABLET PO SCH (21:16)
[2021-09-30] MEDS: GABAPENTIN 300 MG CAPSULE PO SCH (21:16)
[2021-09-30] MEDS: ATORVASTATIN 40 MG TABLET PO SCH (21:16)
[2021-09-30] MEDS: INSULIN GLARGINE,HUM 300 UNITS/3 ML CARTRIDGE SQ SCH (21:19)
[2021-10-01 00:13] VITALS: BP 117/70
[2021-10-01 00:26] LABS: BAND % (MANUAL) 8 % (0-10); EOSINOPHILS % (MANUAL) 3 % (0-8); LYMPHOCYTES % (MANUAL) 20 % (20-40); MONOCYTES % (MANUAL) 13 % (2-10); NEUTROPHILS % (MANUAL) 56 % (42-75)
[2021-10-01 04:00] VITALS: BP 110/65
[2021-10-01] MEDS: LEVOTHYROXINE SODIUM 175 MCG TABLET PO SCH (06:03)
--- NOTE | 2021-10-01 06:12 | NUR ---
Patient alert and able to follow commands. Slept well throughout the night in no acute distress. No episodes of combative or agitation noted.Calm and pleasant .Off restraints during the shift. CPAP was placed at night, Tolerated well.Midline patent and intact on right upper arm.IVs line also intact on right Fa and left Ua. Lopez catheter draining well.Patient compliant with medication.Skin care provided .All needs anticipated and met accordingly. Will endorse to oncoming shift.
[2021-10-01] MEDS: BLOOD SUGAR DIAGNOSTIC 1 EACH STRIP VI SCH ×4 (06:31→20:24)
[2021-10-01 06:54] LABS: HEMATOCRIT 35.5 % (31.2-41.9); MEAN CORPUSCULAR HEMOGLOBIN 27.5 uug (24.7-32.8); MEAN CORPUSCULAR VOLUME 85.6 fL (75.5-95.3); PLATELET COUNT (AUTO) 208 K/uL (179-408)
[2021-10-01 07:23] LABS: CARBON DIOXIDE 33 mmol/L (21-32); CHLORIDE 100 mmol/L (98-107); CREATININE 2.4 mg/dL (0.6-1.3); GLUCOSE 213 mg/dL (74-106); POTASSIUM 4.4 mmol/L (3.5-5.1); UREA NITROGEN, BLOOD 65 mg/dL (7-18)
[2021-10-01 07:31] LABS: NEUTROPHILS % (MANUAL) 0 % (42-75)
[2021-10-01] MEDS: ALBUTEROL SULFATE 2.5 MG/3 ML NEBU NEB SCH ×4 (07:35→20:56)
[2021-10-01] MEDS: IPRATROPIUM BROMIDE 0.5 MG/2.5 ML NEBU NEB SCH ×4 (07:35→20:56)
[2021-10-01 07:52] LABS: MAGNESIUM 1.9 mg/dL (1.8-2.4); PHOSPHOROUS 5.4 mg/dL (2.5-4.9)
[2021-10-01] MEDS: CHOLECALCIFEROL 1,000 UNIT TABLET PO SCH (08:42)
[2021-10-01] MEDS: APIXABAN 5 MG TABLET PO SCH ×2 (08:44→20:22)
[2021-10-01] MEDS: INSULIN REGULAR, HUMAN 300 UNIT/3 ML VIAL SQ PRN ×3 (08:44→17:27)
[2021-10-01] MEDS: ASCORBIC ACID 500 MG TABLET PO SCH (08:47)
[2021-10-01] MEDS: AMIODARONE HCL 200 MG TABLET PO SCH ×2 (08:47→17:28)
[2021-10-01] MEDS: PANTOPRAZOLE SODIUM 40 MG TABLET.DR PO SCH (08:47)
[2021-10-01] MEDS: buPROPion XL 150 MG TAB.SR.24H PO SCH (08:48)
[2021-10-01] MEDS: CARVEDILOL 25 MG TABLET PO SCH ×2 (08:48→17:29)
[2021-10-01] MEDS: ASPIRIN 81 MG TAB.CHEW PO SCH (08:48)
[2021-10-01] MEDS: LORATADINE 10 MG TABLET PO SCH (08:49)
[2021-10-01] MEDS: ALLOPURINOL 100 MG TABLET PO SCH (08:49)
[2021-10-01] MEDS: ESCITALOPRAM OXALATE 10 MG TABLET PO SCH (08:49)
[2021-10-01] MEDS: POLYVINYL ALCOHOL OPHT DROPS 15 ML BOTTLE EACHEYE SCH ×4 (08:50→20:21)
[2021-10-01] MEDS: NYSTATIN POWDER 15 GM BOTTLE TP SCH ×2 (08:50→17:33)
[2021-10-01] MEDS: GLUCERNA SHAKE VANILLA 237 ML CAN PO SCH ×2 (08:51→17:34)
[2021-10-01 12:00] VITALS: BP 109/45
[2021-10-01 16:00] VITALS: BP 116/41
[2021-10-01 20:00] VITALS: BP 111/58
[2021-10-01 20:14] VITALS: BP 111/58
[2021-10-01] MEDS: ATORVASTATIN 40 MG TABLET PO SCH (20:21)
[2021-10-01] MEDS: GABAPENTIN 300 MG CAPSULE PO SCH (20:21)
[2021-10-01] MEDS: QUETIAPINE FUMARATE 25 MG TABLET PO SCH (20:21)
[2021-10-01] MEDS: INSULIN GLARGINE,HUM 300 UNITS/3 ML CARTRIDGE SQ SCH (20:22)
[2021-10-01] MEDS: INSULIN REGULAR, HUMAN 300 UNITS/3 ML VIAL SQ PRN (20:25)
[2021-10-02 00:06] VITALS: BP 110/60
[2021-10-02 04:00] VITALS: BP 106/71
[2021-10-02] MEDS: LEVOTHYROXINE SODIUM 175 MCG TABLET PO SCH (06:01)
[2021-10-02 06:08] LABS: HEMATOCRIT 36.3 % (31.2-41.9); MEAN CORPUSCULAR HEMOGLOBIN 27.3 uug (24.7-32.8); MEAN CORPUSCULAR VOLUME 85.5 fL (75.5-95.3); PLATELET COUNT (AUTO) 221 K/uL (179-408)
[2021-10-02 06:09] LABS: NEUTROPHILS % (MANUAL) 0 % (42-75)
[2021-10-02 06:15] LABS: CARBON DIOXIDE 32 mmol/L (21-32); CHLORIDE 102 mmol/L (98-107); GLUCOSE 254 mg/dL (74-106); UREA NITROGEN, BLOOD 63 mg/dL (7-18)
[2021-10-02 06:18] LABS: MAGNESIUM 1.9 mg/dL (1.8-2.4); PHOSPHOROUS 4.3 mg/dL (2.5-4.9)
--- NOTE | 2021-10-02 06:33 | NUR ---
Patient alert and able to make needs known. no s/s of distress noted. On Ra sating well 94%.Cpap at night time.Denies pain or discomfort. IVs intact. F/c draining well. skin care provided. Continue safety measures. Will endorse to oncoming shift.
[2021-10-02] MEDS: BLOOD SUGAR DIAGNOSTIC 1 EACH STRIP VI SCH ×4 (06:59→21:10)
[2021-10-02] MEDS: IPRATROPIUM BROMIDE 0.5 MG/2.5 ML NEBU NEB SCH ×4 (07:18→21:25)
[2021-10-02] MEDS: ALBUTEROL SULFATE 2.5 MG/3 ML NEBU NEB SCH ×4 (07:18→21:26)
[2021-10-02] MEDS: ASPIRIN 81 MG TAB.CHEW PO SCH (08:44)
[2021-10-02] MEDS: ASCORBIC ACID 500 MG TABLET PO SCH (08:44)
[2021-10-02] MEDS: ALLOPURINOL 100 MG TABLET PO SCH (08:45)
[2021-10-02] MEDS: buPROPion XL 150 MG TAB.SR.24H PO SCH (08:45)
[2021-10-02] MEDS: ESCITALOPRAM OXALATE 10 MG TABLET PO SCH (08:45)
[2021-10-02] MEDS: LORATADINE 10 MG TABLET PO SCH (08:45)
[2021-10-02] MEDS: PANTOPRAZOLE SODIUM 40 MG TABLET.DR PO SCH (08:45)
[2021-10-02] MEDS: CHOLECALCIFEROL 1,000 UNIT TABLET PO SCH (08:45)
[2021-10-02] MEDS: GLUCERNA SHAKE VANILLA 237 ML CAN PO SCH ×2 (08:47→17:46)
[2021-10-02] MEDS: NYSTATIN POWDER 15 GM BOTTLE TP SCH ×2 (08:47→17:48)
[2021-10-02] MEDS: CARVEDILOL 25 MG TABLET PO SCH ×2 (08:47→18:14)
[2021-10-02] MEDS: POLYVINYL ALCOHOL OPHT DROPS 15 ML BOTTLE EACHEYE SCH ×4 (08:47→21:10)
[2021-10-02] MEDS: INSULIN REGULAR, HUMAN 300 UNIT/3 ML VIAL SQ PRN ×3 (08:48→18:09)
[2021-10-02] MEDS: AMIODARONE HCL 200 MG TABLET PO SCH ×2 (09:41→17:37)
[2021-10-02] MEDS: APIXABAN 5 MG TABLET PO SCH ×2 (09:41→21:14)
[2021-10-02 12:00] VITALS: BP 125/54
[2021-10-02] MEDS ORDERED: REMEDY ESSENTIAL ZINC PASTE 113 GM TOP PRN (12:45)
[2021-10-02 13:48] LABS: *BILIRUBIN,URIN NEGATIVE (NEGATIVE); *BLOOD, URINE 3+ (NEGATIVE); *CLARITY,URINE CLEAR (CLEAR); *COLOR,URINE YELLOW (YELLOW); *KETONES,URINE NEGATIVE (NEGATIVE); LEUKOCYTE ESTERASE ,URINE 1+ (NEGATIVE); NITRITE, URINE NEGATIVE (NEGATIVE); PH,URINE 7.5 (5.0-8.0); UGLUCOSE NEGATIVE (NEGATIVE)
[2021-10-02] MEDS ORDERED: CEFTRIAXONE 1 G in IV DEXTROSE 5% 50 ML IV SCH (15:00)
[2021-10-02 15:35] LABS: BACTERIA,URINE MODERATE /HPF (NONE SEEN); RBC,URINE 50-80 /HPF (0-3); SQUAMOUS EPITHELIAL CELL,UR FEW /HPF (NONE SEEN)
[2021-10-02 20:12] VITALS: BP 102/66
[2021-10-02] MEDS: GABAPENTIN 300 MG CAPSULE PO SCH (21:11)
[2021-10-02] MEDS: ATORVASTATIN 40 MG TABLET PO SCH (21:11)
[2021-10-02] MEDS: ACETAMINOPHEN 325 MG TABLET PO PRN (21:11)
[2021-10-02] MEDS: QUETIAPINE FUMARATE 25 MG TABLET PO SCH (21:11)
[2021-10-02] MEDS: INSULIN GLARGINE,HUM 300 UNITS/3 ML CARTRIDGE SQ SCH (21:13)
[2021-10-02] MEDS: INSULIN REGULAR, HUMAN 300 UNITS/3 ML VIAL SQ PRN (21:14)
[2021-10-03 00:06] VITALS: BP 104/69
[2021-10-03 04:11] VITALS: BP 133/69
[2021-10-03] MEDS: LEVOTHYROXINE SODIUM 175 MCG TABLET PO SCH (06:22)
--- NOTE | 2021-10-03 06:30 | NUR ---
Patient slept well this shift. Cpap in place, pressure of 13 with FI02 of 28, placement of mask is difficult with available mask, occasionally note with leak. SOB noted with exertion. AAO x4, with episodes of forgetfulness. 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 Redness still noted to abdominal/ breast and groin folds, nystatin powder applied. no S/S of hypo/ hyperglycemia. HOB up at all times. Safety measures initiated, call light within reach.
[2021-10-03] MEDS: BLOOD SUGAR DIAGNOSTIC 1 EACH STRIP VI SCH ×2 (06:41→11:40)
[2021-10-03 07:42] LABS: HEMATOCRIT 37.6 % (31.2-41.9); MEAN CORPUSCULAR HEMOGLOBIN 27.7 uug (24.7-32.8); MEAN CORPUSCULAR VOLUME 85.9 fL (75.5-95.3); PLATELET COUNT (AUTO) 234 K/uL (179-408)
[2021-10-03 07:50] LABS: CARBON DIOXIDE 30 mmol/L (21-32); CHLORIDE 101 mmol/L (98-107); CREATININE 1.9 mg/dL (0.6-1.3); GLUCOSE 201 mg/dL (74-106); UREA NITROGEN, BLOOD 63 mg/dL (7-18)
[2021-10-03] MEDS: ALBUTEROL SULFATE 2.5 MG/3 ML NEBU NEB SCH ×2 (07:57→11:45)
[2021-10-03] MEDS: IPRATROPIUM BROMIDE 0.5 MG/2.5 ML NEBU NEB SCH ×2 (07:57→11:45)
[2021-10-03] MEDS: ASCORBIC ACID 500 MG TABLET PO SCH (08:33)
[2021-10-03] MEDS: ASPIRIN 81 MG TAB.CHEW PO SCH (08:34)
[2021-10-03] MEDS: CHOLECALCIFEROL 1,000 UNIT TABLET PO SCH (08:34)
[2021-10-03] MEDS: ESCITALOPRAM OXALATE 10 MG TABLET PO SCH (08:34)
[2021-10-03] MEDS: buPROPion XL 150 MG TAB.SR.24H PO SCH (08:34)
[2021-10-03] MEDS: PANTOPRAZOLE SODIUM 40 MG TABLET.DR PO SCH (08:34)
[2021-10-03] MEDS: LORATADINE 10 MG TABLET PO SCH (08:34)
[2021-10-03 08:35] VITALS: BP 133/91
[2021-10-03] MEDS: ALLOPURINOL 100 MG TABLET PO SCH (08:35)
[2021-10-03] MEDS: CARVEDILOL 25 MG TABLET PO SCH (08:35)
[2021-10-03] MEDS: POLYVINYL ALCOHOL OPHT DROPS 15 ML BOTTLE EACHEYE SCH (08:35)
[2021-10-03] MEDS: APIXABAN 5 MG TABLET PO SCH (08:36)
[2021-10-03] MEDS: NYSTATIN POWDER 15 GM BOTTLE TP SCH (08:37)
[2021-10-03] MEDS: GLUCERNA SHAKE VANILLA 237 ML CAN PO SCH (08:37)
[2021-10-03] MEDS: INSULIN REGULAR, HUMAN 300 UNIT/3 ML VIAL SQ PRN ×2 (08:49→11:42)
[2021-10-03] MEDS ORDERED: AMIODARONE HCL 200 MG TABLET PO SCH (09:00)
--- NOTE | 2021-10-03 12:45 | NUR ---
Patient discharged from unit. IV site removed. ID badge removed. Discharge education provided.
== END 2021-10-03 12:50 | DRG 291 ==
LOC: ER 17:18 → TELE3 09-26 02:33 → MEDSURG3 10-03 07:50
PROVIDERS: ADMIT Nurse Practitioner Acute Care; ATTEND Nurse Practitioner Family
PROC: 5A09357 Assistance with Respiratory Ventilation, Less than 24 Consecutive Hours, Continuous Positive Airway Pressure (ICD-10-PCS; 2021-09-26)
PROC: 5A09357 Assistance with Respiratory Ventilation, Less than 24 Consecutive Hours, Continuous Positive Airway Pressure (ICD-10-PCS; 2021-09-27)
PROC: 05H533Z Insertion of Infusion Device into Right Subclavian Vein, Percutaneous Approach (ICD-10-PCS; principal; 2021-09-30)
PROC: B546ZZA Ultrasonography of Right Subclavian Vein, Guidance (ICD-10-PCS; 2021-09-30)
DX: I13.0 Hypertensive heart and chronic kidney disease with heart failure and stage 1 through stage 4 chronic kidney disease, or unspecified chronic kidney disease (principal); J96.01 Acute respiratory failure with hypoxia; N17.0 Acute kidney failure with tubular necrosis; I50.33 Acute on chronic diastolic (congestive) heart failure; Z68.44 Body mass index [BMI] 60.0-69.9, adult; I48.20 Chronic atrial fibrillation, unspecified; E66.2 Morbid (severe) obesity with alveolar hypoventilation; D68.59 Other primary thrombophilia; Z79.01 Long term (current) use of anticoagulants; E03.9 Hypothyroidism, unspecified; E78.5 Hyperlipidemia, unspecified; E11.22 Type 2 diabetes mellitus with diabetic chronic kidney disease; E83.42 Hypomagnesemia; E88.09 Other disorders of plasma-protein metabolism, not elsewhere classified; Z79.4 Long term (current) use of insulin; K21.9 Gastro-esophageal reflux disease without esophagitis; Z74.09 Other reduced mobility; I25.10 Atherosclerotic heart disease of native coronary artery without angina pectoris; N18.9 Chronic kidney disease, unspecified; J44.9 Chronic obstructive pulmonary disease, unspecified; Z79.84 Long term (current) use of oral hypoglycemic drugs; Z20.822 Contact with and (suspected) exposure to COVID-19; Z79.82 Long term (current) use of aspirin; Z88.5 Allergy status to narcotic agent; Z79.899 Other long term (current) drug therapy; Z95.5 Presence of coronary angioplasty implant and graft; F32.A Depression, unspecified; Z87.891 Personal history of nicotine dependence
CPT/HCPCS: 36415; 36600; 70030-TC; 71045; 83605; 83735; 84100; 84443; 84484; 85025; 85730; 87040; 87077; 87086; 93005; 93307; 94640; 94660; 97161; 99082-TC; A4663; A6209; A9150; G0378; J0282; J0696; J1120; J1815; J1940; J2270; J3475; J3590; J7060; J8499